=== PATIENT | male | born 1970 | race Caucasian/White ===

== ENCOUNTER 2020-03-22 14:26 | Emergency (ER) | payer SELFPAY ==
--- NOTE | 2020-03-22 16:06 | TELE ---
HPI Do you have fever,cough or shortness of breath?: Yes - General Reason For Visit: COVID 19 TEST Time Seen by Provider: 03/22/20 16:02 History Source: Patient Exam Limitations: Clinical Condition - History of Present Illness Timing/Duration: unsure Associated Symptoms: reports: denies symptoms. denies: shortness of breath, syncope, weakness 03/22/20 16:02 Patient with no significant past medical history presenting to virtual urgent care for COVID testing as a requirement for admission to [employer]. Patient report has no symptoms. Denies cough, fever, shortness of breath. Denies any other symptoms Review of Systems - Review of Systems Able to Perform ROS?: Yes Limited Korean proficient: No Constitutional: No: Chills, Fever, Malaise HEENTM: No: Symptoms Reported, See HPI, Eye Pain, Blurred Vision, Tearing, Recent change in vision, Double Vision, Cataracts, Ear Pain, Ocular Prothesis, Ear Discharge, Nose Pain, Nose Congestion, Tinnitus, Nose Bleeding, Hearing Loss, Throat Pain, Throat Swelling, Mouth Pain, Dental Problems, Difficulty Swallowing, Mouth Swelling, Other Respiratory: No: Symptoms reported, See HPI, Cough, Orthopnea, Shortness of Breath, SOB with Exertion, SOB at Rest, Stridor, Wheezing, Productive cough, Hemoptysis, Other Cardiac (ROS): No: Symptoms Reported, See HPI, Chest Pain, Edema, Irregular Heart Rate, Lightheadedness, Palpitations, Syncope, Chest Tightness, Other ABD/GI: No: Symptoms Reported Musculoskeletal: No: Symptoms Reported, Muscle Pain Integumentary: No: Symptoms Reported Neurological: No: Symptoms reported, Tingling, Weakness All Other Systems: Reviewed and Negative *Physical Exam - Physical Exam General Appearance: Yes: Nourished, Appropriately Dressed. No: Apparent Distress HEENT: positive: Normal ENT Inspection Respiratory/Chest: negative: Respiratory Distress, Accessory Muscle Use Musculoskeletal: positive: Normal Inspection Extremity: positive: Normal Inspection, Normal Range of Motion Integumentary: positive: Normal Color Neurologic: positive: Fully Oriented, Alert, Normal Mood/Affect, Normal Response, Motor Strength /5 - Medical Decision Making 03/22/20 16:02 Patient with no significant past medical history presenting to virtual urgent care for COVID testing as a requirement for admission to [employer]. Patient report has no symptoms. Denies cough, fever, shortness of breath. Denies any other symptoms Patient asymptomatic at this time in no acute distress and afebrile. COVID test ordered as per patient request. [facility] go [facility] for testing Discharge Diagnosis at time of Disposition: Counseled about COVID-19 virus infection - Referrals Follow-up Referral(s): Chele Marcelo MD [Primary Care Provider] - - Patient Instructions - Discharge Disposition: HOME Condition at time of Disposition: Stable
== END 2020-03-22 16:06 | disposition home or self-care (01) ==
LOC: JVIRT 14:26
DX: Z11.59 Encounter for screening for other viral diseases (principal)
CPT/HCPCS: Q3014-GT; U0003